=== PATIENT | female | born 2000 | race African-American/Black ===

== ENCOUNTER 2023-11-27 18:36 | Emergency (ER) | payer MEDICAID ==
[~2023-11-27] VITALS: Ht 160 cm; Wt 55.0 kg
[2023-11-27 18:47] VITALS: O2SAT 100
[2023-11-27] MEDS ORDERED: IBUPROFEN 600MG TABLET PO ONE (19:45)
[2023-11-27] MEDS: IBUPROFEN 600MG TABLET PO NR (20:55)
[2023-11-27 21:16] VITALS: BP 137/89; PULSE 75; RESP 18; TEMP 97
== END 2023-11-27 21:18 | disposition home or self-care (01) ==
LOC: ER 18:36
DX: S40.011A Contusion of right shoulder, initial encounter (principal); W18.39XA Other fall on same level, initial encounter; Y93.89 Activity, other specified; Y92.89 Other specified places as the place of occurrence of the external cause; Y99.8 Other external cause status
CPT/HCPCS: 73030; 99283